=== PATIENT | male | born 1940 | race Caucasian/White ===

== ENCOUNTER 2016-10-11 10:19 | Emergency (ER) | payer MEDICARE, OTHER, BC ==
[~2016-10-11 10:19] MED LIST: CALC1TAB87 PO; CURCPOW PO; DICL1GEL TOPICAL; DICY20TA10 PO; HYDR-3133 PO; IPRA0.02 NEB; LACTCAP8 PO; LISI-515 PO; LOMO2.5T PO; MECL-62 PO; MORP15TA73 PO; MULT1TAB84 PO; NEUR300C PO; OXYC-395 PO; PROM25TA5 PO; PROT40TA PO; TIZA4TAB PO; TRIAPOW; ZOFR4TAB3 SL
[2016-10-11 10:25] VITALS: BP 136/67; PULSE 60; RESP 16; TEMP 97.9; O2SAT 98
[2016-10-11] MEDS ORDERED: PERC5TAB12 PO (10:53)
[2016-10-11] MEDS ORDERED: CLIN1CAP6 PO (10:53)
--- NOTE | 2016-10-11 10:54 | PD ---
HPI Chief Complaint: Oral / Dental Pain or Problem Time Seen by Provider: 10:46 Travel History International Travel<30 days: No Contact w/Intl Traveler<30days: No Traveled to known affect area: No History of Present Illness HPI 76-year-old male here with complaint of dental pain. For the last 6-8 months patient has had broken teeth in the right posterior maxilla. He has not followed up with the dentist due to financial constraints. Patient woke up at 2 :30 this morning with severe pain in this area. It radiates up into the sinus, ears. He has not had any drainage. No fevers or chills. PFSH Past Medical History Arthritis: Yes Asthma: No Autoimmune Disease: No Anxiety: No Depression: No Cancer: No Chemotherapy: No COPD: No Cerebrovascular Accident: No Diabetes: No Deep Vein Thrombosis: Yes (RIGHT LEG) Endocrine: No Gastrointestinal Disorders: Yes (ibs) GERD: Yes (IBS) Genitourinary: No Headaches: No Hepatitis: No Hiatal Hernia: No Heparin Induced Thrombocytopen: No Hypertension: No Immune Disorder: No Implanted Vascular Access Dvce: No Kidney Stones: No Psychiatric: No Reproductive: No Respiratory: No Migraines: Yes Radiation Therapy: No Renal Failure: No Seizures: No Sickle Cell Disease: No Sleep Apnea: No Thyroid Disease: No Ulcer: No Past Surgical History 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) AICD: No Arteriovenous Shunt: No Cardiac Surgery: No Ear Surgery: No Endocrine Surgery: No Eye Surgery: No Genitourinary Surgery: Yes (VASECTOMY) Gynecologic Surgery: No Insulin Pump: No Joint Replacement: No Neurologic Surgery: No Oral Surgery: Yes (SINUS , HAIR LIP) Thoracic Surgery: No Other Surgery: Yes (HAMMER TOES, CARPAL TUNNEL, VASCECTOMY, spleenectomy) Social History Alcohol Use: No Tobacco Use: No Substance Use: No Allergies-Medications (Allergen,Severity, Reaction): Coded Allergies: Ibuprofen (Verified Allergy, Severe, INCREASED BLEEDING, 10/11/16) Medrol (Verified Allergy, Severe, ELEVATED PULSE, 10/11/16) Penicillin (Verified Allergy, Severe, HIVES, 10/11/16) Shellfish (Verified Allergy, Severe, HIVES, 10/11/16) Coconut (Verified Allergy, Unknown, 10/11/16) Reported Meds & Prescriptions Reported Meds & Active Scripts Active Zofran Odt (Ondansetron Odt) 4 Mg Tab 4 Mg SL Q6HR PRN Reported Curcumin (Turmeric (Curcuma Longa) (Bulk) 1 Pow Pow Unknown Dose PO DIRECTED Lisinopril 20 Mg Tab 20 Mg PO DAILY PRN Protonix (Pantoprazole Sodium) 40 Mg Tab 40 Mg PO DAILY Voltaren Topical (Diclofenac Topical) 1% Gel 1 Applic TOPICAL BID Morphine Sulfate CR (Morphine Sulfate) 15 Mg Tab 1 Tab PO BID Oxycodone (Oxycodone HCl) 10 Mg Tab 10 Mg PO BID PRN Tizanidine (Tizanidine HCl) 4 Mg Tab 4 Mg PO TID Triamcinolone Acetonide (Triamcinolone Acetonide (Topic) 1 Pow Pow Ipratropium Neb (Ipratropium Cooter) 0.5 Mg/2.5 Ml Amp 0.5 Mg NEB Q12HR NEB PRN Probiotic (Lactobacillus Acidophilus) 1 Cap Cap 1 Cap PO TIDAC Lomotil (Diphenoxylate-Atropine) 2.5-0.025 Mg Tab 1 Tab PO Q6H PRN Phenergan (Promethazine HCl) 25 Mg Tab 25 Mg PO Q6H PRN Meclizine (Meclizine HCl) 25 Mg Tab 25 Mg PO TID PRN Hydroxyzine HCl 25 Mg Tab 25 Mg PO TID PRN Neurontin (Gabapentin) 300 Mg Cap 300 Mg PO TID PRN Dicyclomine (Dicyclomine HCl) 20 Mg Tab 2 Mg PO QID PRN Multivitamin Adults (Multiple Vitamins W/ Minerals) 1 Tab 1 Tab PO DAILY Calcium 600 with Vitamin D (Calcium Carbonate-Cholecalciferol) 600-400 mg-Unit Tab 1 Tab PO DAILY Review of Systems Except as stated in HPI: all other systems reviewed are Neg Physical Exam Narrative GENERAL: Elderly male in mild distress SKIN: Focused skin assessment warm/dry. HEAD: Normocephalic. EYES: No scleral icterus. No injection or drainage. ENT: No nasal bleeding or discharge. Mucous membranes pink and moist. Poor dentition. The right maxillary posterior most molars are carious, fractured with tenderness to palpation along the gingival mucosa but no palpable abscess. Floor the mouth is soft NECK: Supple CARDIOVASCULAR: Regular rate and rhythm. RESPIRATORY: No accessory muscle use. MUSCULOSKELETAL: Normal gait NEUROLOGICAL: Awake and alert. Normal speech. PSYCHIATRIC: Appropriate mood and affect; insight and judgment normal. Data Data Last Documented VS Vital Signs Date Time Temp Pulse Resp B/P Pulse Ox O2 Delivery O2 Flow Rate FiO2 10/11/16 10:25 97.9 60 16 136/67 98 MDM Medical Decision Making Medical Screen Exam Complete: Yes Emergency Medical Condition: Yes Medical Record Reviewed: Yes Differential Diagnosis 76-year-old male here with dental pain. Exam is consistent with dental caries with fracture and periapical abscess. No evidence of Wayne angina for facial cellulitis Narrative Course Dental block performed, patient discharged with resources, clindamycin and analgesics Procedures Procedure Narrative Periapical block was performed with Marcaine in the right maxillary posterior most molar is Diagnosis Primary Impression: Dental abscess Additional Impression: Dental caries Referrals: [facility] call for appointment Dentist call for appointment Additional Instructions: Antibiotics as prescribed. Pain medications as needed. Follow-up with dentist as discussed. Med/Other Pt SpecificInfo: Prescription(s) given Scripts Oxycodone-Acetaminophen (Percocet)5-325 mg Tab1-2 Tab PO Q4H PRN (PAIN) #10 TAB Ref 0 Prov:Lucinda Clark MD 10/11/16 Clindamycin 300 Mg [id number] Mg PO TID 7 Days Ref 0 Prov:Lucinda Clark MD 10/11/16 Disposition: 01 DISCHARGE HOME Condition: Stable Lucinda Clark MD Oct 11, 2016 10:54
[2016-10-11] MEDS ORDERED: BUPIVACAINE HCL PF 0.5% 10 ML VIAL INFIL ONE (11:00)
== END 2016-10-11 11:11 | disposition home or self-care (01) ==
LOC: PHEFT 10:19
DX: K58.9 Irritable bowel syndrome, unspecified (principal); K02.9 Dental caries, unspecified; K04.7 Periapical abscess without sinus; S02.5XXA Fracture of tooth (traumatic), initial encounter for closed fracture; Z86.718 Personal history of other venous thrombosis and embolism; X58.XXXA Exposure to other specified factors, initial encounter
CPT/HCPCS: 64400